=== PATIENT | female | born 1990 ===

== ENCOUNTER 2018-09-10 14:15 | Inpatient (IN) | payer OTHER ==
[~2018-09-10] VITALS: Ht 165.1 cm; Wt 70.3 kg
[2018-09-10] MEDS ORDERED: PRENATE ELITE1 EAC2 PO (16:04)
[2018-09-20] MEDS ORDERED: PREPLUS CA-FE1 EACH PO (09:23)
[2018-09-20] MEDS ORDERED: FERROUS SULFAT325 M1 PO (09:23)
== END 2018-09-20 12:34 | disposition home or self-care (01) | DRG 788 ==
LOC: OB/GYN 09-17 07:00 → O/R 09-17 11:27 → OB/GYN 09-17 14:15
PROVIDERS: ADMIT Obstetrics & Gynecology Maternal & Fetal Medicine
PROC: 4A1HXCZ Monitoring of Products of Conception, Cardiac Rate, External Approach (ICD-10-PCS; 2018-09-17)
PROC: 10D00Z1 Extraction of Products of Conception, Low, Open Approach (ICD-10-PCS; principal; 2018-09-17 07:00)
DX: O82 Encounter for cesarean delivery without indication (principal); O64.1XX0 Obstructed labor due to breech presentation, not applicable or unspecified; Z3A.39 39 weeks gestation of pregnancy; Z37.0 Single live birth